=== PATIENT | male | born 1970 | race African-American/Black ===

== ENCOUNTER 2018-08-07 16:20 | Inpatient (IN) | payer OTHER ==
[2018-08-07 17:05] LABS: #Basophils 0.1 thou/uL (0.0-0.2); #Monocytes 0.7 thou/uL (0.11-0.59); #Neutrophils 4.9 thou/uL (1.40-6.50); %Basophils 0.8 % (0.0-1.0); %Eosinophils 0.4 % (0.0-10.0); %Lymphocytes 14.5 % (21.0-51.0); %Monocytes 10.1 % (0.0-10.0); %Neutrophils 74.1 % (42.0-75.0); Mean Corpuscular HGB CONC 33.2 g/dL (32.0-36.0); Mean Corpuscular Volume 90.4 fL (78.0-98.0); Mean Platelet Volume 9.5 fL (7.4-10.4); Platelet Count 178 thou/uL (130-400); RBC Distribution Width 12.3 % (11.5-14.5); Red Blood Cell (RBC) Count 4.34 mill/uL (4.70-6.10); White Blood Cell (WBC) Count 6.6 thou/uL (4.8-10.8)
[2018-08-07 17:26] LABS: Acetaminophen Less than 6.0 mcg/mL (10.0-30.0); Alcohol Less than 10 mg/dL (Less than 10); Salicylate Less than 8.0 mg/dL (15.0-30.0)
[2018-08-07 17:27] LABS: ALT (SGPT) 14 U/L (8-55); AST (SGOT) 24 U/L (5-34); Albumin 4.3 g/dL (3.5-5.0); Alkaline Phosphatase 59 U/L (40-150); Anion Gap 14 mmol/L (10-20); BUN (Urea Nitrogen) 19 mg/dL (8.9-20.6); Bilirubin, Total 0.7 mg/dL (0.2-1.2); Calc. Creatinine Clearance 0 mL/min (70-130); Calcium 9.1 mg/dL (7.8-10.44); Carbon Dioxide 26 mmol/L (22-29); Chloride 105 mmol/L (98-107); Estimated GFR-MDRD 66; Globulin 3.1 g/dL (2.4-3.5); Glucose 110 mg/dL (70-105); Potassium 3.7 mmol/L (3.5-5.1); Protein, Total 7.4 g/dL (6.0-8.3); Sodium 141 mmol/L (136-145)
--- NOTE | 2018-08-07 17:45 | CT ---
CT BRAIN NONCONTRAST: 08/07/18 HISTORY: 47-year-old male with altered mental status. FINDINGS: There is no midline shift or any other mass effect. There is no evidence of acute intracranial hemor rhage, large cortical infarct, obstructive hydrocephalus, or extraaxial fluid collection. The calvar ium is intact. IMPRESSION: No acute intracranial findings. jn [] POS: [facility]
--- NOTE | 2018-08-07 17:46 | RAD ---
RADIOGRAPH CHEST 1 VIEW: 08/07/18 HISTORY: 47-year-old male with altered mental status. FINDINGS: There is no air space density, pulmonary edema, or pneumothorax. The lateral costophrenic angles are sharp. IMPRESSION: No acute pulmonary findings. jn [] POS: [facility]
[2018-08-07 17:49] LABS: CKMB 3.8 ng/mL (0-6.6); Troponin I Less than 0.010 ng/mL (< 0.028)
[2018-08-07 19:05] LABS: Bilirubin Moderate (Negative); Blood, Urine Negative (Negative); Clarity CLEAR (Clear); Glucose, Urine (Dipstick) Negative (Negative); Leukocyte Small (Negative); Nitrite Negative (Negative); Protein, Urine (Dipstick) 30 mg/dL (Neg-Trace); Specific Gravity, Urine 1.034 (1.002-1.036); pH, Urine 5.5 (5.0-9.0)
[2018-08-07 19:08] LABS: Bacteria/HPF None Seen HPF (None Seen); Pathc Cast-AUWi Flag 1.45 (0-2.49); Squamous Epithelial 0-3 HPF (0-3)
[2018-08-07 19:14] LABS: Amphetamine Not Detected (NotDetected); Barbiturates Screen Not Detected (NotDetected); Benzodiazepine Screen Not Detected (NotDetected); Cocaine Metabolite Screen Not Detected (NotDetected); Medtox Control Line Valid? VALID (VALID); Medtox Reader # READER 1; Methadone Not Detected (NotDetected); Methamphetamine Not Detected (NotDetected); Opiate Screen Not Detected (NotDetected); Oxycodone Screen Not Detected (NotDetected); Phencyclidine (PCP) Not Detected (NotDetected); THC/Cannabinoid Screen Not Detected (NotDetected); Tricyclic Screen Not Detected (NotDetected)
[2018-08-07 19:19] LABS: Crystals/HPF 1+ AMORPH URATES HPF (Negative); Hyaline Casts/LPF 0-3 HYALINE CAST LPF (0-3 Hyaline); Renal Epithelial None Seen HPF (0-3); Transitional Epithelial NONE SEEN HPF (0-3)
[2018-08-07] MEDS ORDERED: Acetaminophen 325 MG TAB PO PRN (20:45)
[2018-08-07] MEDS ORDERED: Ondansetron HCl/PF 4 MG/2 ML Vial IVP PRN (20:45)
[2018-08-07] MEDS ORDERED: Ondansetron ODT 4 MG TAB PO PRN (20:45)
--- NOTE | 2018-08-07 20:56 | PDOC.FPRHP ---
- History of Present Illness Chief Complaint: AMS History of Present Illness: This is a 47 yo M here for AMS after being reported missing and found on the street by police officers. The patient was reported by EMS to have pinpoint pupils that were reactive. On exam in the ED, the patient is responsive, but only answers questions with "uh." He is unable to state his name, where he is, his , or how he got here. - Allergies/Adverse Reactions Allergies Allergy/AdvReac Type Severity Reaction Status Date / Time No Allergy Information Allergy Unverified 08/07/18 20:54 Available - History PMHx: unknown PSHx: unknown FHx: unknown Social: unknown - Review of Systems ROS unobtainable: due to mental status - Vital signs BP: 154/79 HR: 61 RR: 16 Tmax: 97.9 Pox: 98% on RA Wt: 104.33kg - Physical Exam HEENT: normocephalic and atraumatic, EOMI Chest: no-tender to palpation, no lesions Heart: RRR, normal S1/S2, no murmurs/rubs/gallops, pulses present, no edema Lungs: CTAB, no respiratory distress, good air movement, no wheezing Abdomen: soft, non-tender, bowel sounds present, no masses/distention -Musculoskeletal: limited ROM, hard to assess due to patient unable to cooperate fully -Neurological: Limited ROM, strength diminished, but hard to assess due to AMS -Psychiatric: AXOX 1 FMR H&P: Results - Labs Result Diagrams: 08/07/18 16:53 08/07/18 16:53 Lab results: WBC 6.6 thou/uL (4.8-10.8) 08/07/18 16:53 Hgb 13.0 g/dL (14.0-18.0) L 08/07/18 16:53 Hct 39.2 % (42.0-52.0) L 08/07/18 16:53 MCV 90.4 fL (78.0-98.0) 08/07/18 16:53 Plt Count 178 thou/uL (130-400) 08/07/18 16:53 Neutrophils % 74.1 % (42.0-75.0) 08/07/18 16:53 Sodium 141 mmol/L (136-145) 08/07/18 16:53 Potassium 3.7 mmol/L (3.5-5.1) 08/07/18 16:53 Chloride 105 mmol/L (98-107) 08/07/18 16:53 Carbon Dioxide 26 mmol/L (22-29) 08/07/18 16:53 BUN 19 mg/dL (8.9-20.6) 08/07/18 16:53 Creatinine 1.18 mg/dL (0.6-1.3) 08/07/18 16:53 Glucose 110 mg/dL (70-105) H 08/07/18 16:53 Calcium 9.1 mg/dL (7.8-10.44) 08/07/18 16:53 Total Bilirubin 0.7 mg/dL (0.2-1.2) 08/07/18 16:53 AST 24 U/L (5-34) 08/07/18 16:53 ALT 14 U/L (8-55) 08/07/18 16:53 Alkaline Phosphatase 59 U/L (40-150) 08/07/18 16:53 Ammonia 36 umol/L (18-72) 08/07/18 17:12 CK-MB (CK-2) 3.8 ng/mL (0-6.6) 08/07/18 16:47 Serum Total Protein 7.4 g/dL (6.0-8.3) 08/07/18 16:53 Albumin 4.3 g/dL (3.5-5.0) 08/07/18 16:53 Lipase 8 U/L (8-78) 08/07/18 16:47 Urine Ketones 40 mg/dL (Negative) H 08/07/18 18:40 Urine Blood Negative (Negative) 08/07/18 18:40 Urine Nitrite Negative (Negative) 08/07/18 18:40 Ur Leukocyte Esterase Small (Negative) H 08/07/18 18:40 Urine RBC 4-6 HPF (0-3) 08/07/18 18:40 Urine WBC 7-10 HPF (0-3) H 08/07/18 18:40 Ur Squamous Epith Cells 0-3 HPF (0-3) 08/07/18 18:40 Urine Bacteria None Seen HPF (None Seen) 08/07/18 18:40 FMR H&P: A/P - Problem List (1) Encephalopathy Current Visit: Yes Status: Acute Code(s): G93.40 - ENCEPHALOPATHY, UNSPECIFIED - Plan This is a 47yo M presenting for AMS after being found in the street by polic. Encephalopathy - AMS 2/2 to unknown cause - GCS 11 - CXR no acute cardiopulm process - CT head: nml - UDS: neg - UA: small leuk esterase, WBC 7-10, no nitrites - Patient places on fall and seizure precautions - Will get AM CBC, BMP - Will monitor patient overnight; consider MRI to look for any infarcts Case discussed with Dr. Castillo FMR H&P: Upper Level - Pertinent history 47 yo male here for AMS. History obtained from ER doc, EMS who said patient was found wandering the streets after being reported missing. No family available, Drivers license in the room with address of [place]. - Pertinent findings 147/81 HR: 64 Temp: 97.9 RR: 18 SO2: 97% on RA GEN: NAD, alert, non-verbal EYES: 3mm b/l, minimally reactive CARD: RRR, no m/g/r PULM: CTAB, limited due to patient non-compliance ABD: BSx4, soft NEURO: GCS: 11, patient sometimes follows commands such as squeezing hands, but does not assist with leaning forward to listen to lungs, does not answer questions, DTR 2+ in LE; eyes are spontaneously looking around room and out the ER glass door to his room, does not answer questions. UDS: neg Alcohol: <10 WBC: 6.6 H/H: 13/39.2 Plt: 178 Na: 141 K; 3.7 Eddie: 36 TSH: .67 Lipase: 8 Trop: <0.010 Glucose: 110 - Plan Date/Time: 08/07/182054 Ebenezer Dickinson DO, have evaluated this patient and agree with findings/plan as outlined by intern architect resident. Pertinent changes/additions are listed here. 1. encephalopathy, unknown source suspected toxic, recreational drug induced such as K2, which would not show up on a UDS. Will monitor overnight with supportive care and reevaluate in the AM. Patient noncombative. Fall precautions, seizure precautions. He is protecting his airway so ok to drink fluids. Consider MRI in the AM if not improving as there could be lacunar infarcts or other etiology. Will also try to get more information from family/friends or law enforcement in the AM. 2. normocytic anemia asymptomatic
[2018-08-07 23:28] VITALS: BMI 29.4
[2018-08-08 05:50] LABS: #Basophils 0.1 thou/uL (0.0-0.2); #Lymphocytes 1.4 thou/uL (1.20-3.40); #Monocytes 0.6 thou/uL (0.11-0.59); #Neutrophils 4.8 thou/uL (1.40-6.50); %Basophils 0.8 % (0.0-1.0); %Eosinophils 0.2 % (0.0-10.0); %Lymphocytes 19.9 % (21.0-51.0); %Monocytes 9.2 % (0.0-10.0); %Neutrophils 69.8 % (42.0-75.0); Hemoglobin 12.1 g/dL (14.0-18.0); Mean Corpuscular HGB CONC 32.8 g/dL (32.0-36.0); Mean Corpuscular Hemoglobin 29.7 pg (27.0-31.0); Mean Corpuscular Volume 90.6 fL (78.0-98.0); Mean Platelet Volume 9.1 fL (7.4-10.4); Platelet Count 173 thou/uL (130-400); RBC Distribution Width 12.4 % (11.5-14.5); Red Blood Cell (RBC) Count 4.06 mill/uL (4.70-6.10); White Blood Cell (WBC) Count 6.9 thou/uL (4.8-10.8)
[2018-08-08 06:11] LABS: Anion Gap 13 mmol/L (10-20); BUN (Urea Nitrogen) 16 mg/dL (8.9-20.6); Calc. Creatinine Clearance 154 mL/min (70-130); Calcium 8.7 mg/dL (7.8-10.44); Carbon Dioxide 25 mmol/L (22-29); Chloride 103 mmol/L (98-107); Estimated GFR-MDRD Greater than 90; Glucose 102 mg/dL (70-105); Potassium 3.4 mmol/L (3.5-5.1); Sodium 138 mmol/L (136-145)
--- NOTE | 2018-08-08 08:46 | PDOC.FM ---
- Subjective Subjective: 47 yo M who was found on the streets by PD. He was only ID'd due to having a DL in his wallet. Pt has not responded to commands since admission. This am, he is in no acute distress with eyes open, however will not respond to questions or commands. - Objective MAR Reviewed: Yes Vital Signs & Weight: Vital Signs (12 hours) Temp Pulse Resp BP Pulse Ox 08/08/18 07:55 97.3 F L 52 L 16 139/64 97 08/08/18 03:05 99.6 F 55 L 18 137/70 98 08/08/18 00:00 98.5 F 66 18 175/91 H Weight Weight 103.873 kg Result Diagrams: 08/08/18 05:34 08/08/18 05:34 <Daniel Martin - Last Filed: 08/08/18 08:44> - Objective Vital Signs & Weight: Vital Signs (12 hours) Temp Pulse Resp BP BP Pulse Ox 08/09/18 07:20 98.1 F 44 L 15 114/63 99 08/09/18 03:04 99.3 F 60 18 118/56 L 98 Weight Weight 103.873 kg Result Diagrams: 08/08/18 05:34 08/08/18 05:34 <Josafat Glasgow - Last Filed: 08/09/18 09:11> Phys Exam - Physical Examination Constitutional: NAD HEENT: PERRLA, moist MMs Neck: no nodes, no JVD Respiratory: clear to auscultation bilateral Cardiovascular: RRR 3/6 systolic murmur Gastrointestinal: soft, non-tender, no distention Musculoskeletal: no edema Pt moving all limbs, will not follow commands. Pupils sluggish Psychiatric: normal affect, A&O x 3 Skin: no rash, normal turgor <Daniel Martin - Last Filed: 08/08/18 08:44> Dx/Plan (2) Toxic encephalopathy Code(s): G92 - TOXIC ENCEPHALOPATHY Status: Acute - Plan Plan: Toxic encephalopathy - unclear etiology at this time. No apparent trauma and CT brain is negative. Tox screen negative, however this does not rule out some street drugs such as K2. No white count or other signs of infection. Electrolytes WNL. Unclear about psych hx due to no family available for questions. - Continue to monitor status on tele - Work to find family for more history. - Consider MHMR evaluation once all organic options have been ruled out Dispo: Continue to monitor on tele. No clear etiology at this time. LOS 24-48 hours <Daniel Martin - Last Filed: 08/08/18 08:44> Attending Addendum - Attending Addendum Date/Time: 08/09/18 0911 I personally evaluated the patient and discussed the management with Dr. Martin yesterday. I agree with the History, Examination, Assessment and Plan documented above with any addition or exceptions noted below. <Josafat Glasgow - Last Filed: 08/09/18 09:11>
--- NOTE | 2018-08-08 17:07 | EKG ---
Test Reason : AMS Blood Pressure : / mmHG Vent. Rate : 053 BPM Atrial Rate : 053 BPM P-R Int : 166 ms QRS Dur : 084 ms QT Int : 458 ms P-R-T Axes : 031 025 006 degrees QTc Int : 429 ms Sinus bradycardia Minimal voltage criteria for LVH, may be normal variant Borderline ECG Confirmed by DR. Jessica MARINELLI MD ([id number]) on 08/08/2018 5:06:59 PM Referred By: Confirmed By:DR. Jessica MARINELLI MD
[2018-08-08] MEDS: Benztropine 1 MG TAB PO SCH (20:47)
[2018-08-08] MEDS ORDERED: OLANZapine ODT 5 MG TAB SL SCH (21:00)
--- NOTE | 2018-08-09 08:19 | PDOC.FM ---
- Subjective Subjective: Pt seen at bedside this morning. He is interactive and pleasant. He denies all complaints. There were no acute events over night. - Objective MAR Reviewed: Yes Vital Signs & Weight: Vital Signs (12 hours) Temp Pulse Resp BP BP Pulse Ox 08/09/18 07:20 98.1 F 44 L 15 114/63 99 08/09/18 03:04 99.3 F 60 18 118/56 L 98 08/08/18 20:30 98.1 F 71 16 129/68 97 Weight Weight 103.873 kg Result Diagrams: 08/08/18 05:34 08/08/18 05:34 <Daniel Martin - Last Filed: 08/09/18 08:17> - Objective Vital Signs & Weight: Vital Signs (12 hours) Temp Pulse Resp BP BP Pulse Ox 08/09/18 08:10 99 08/09/18 07:20 98.1 F 44 L 15 114/63 99 08/09/18 03:04 99.3 F 60 18 118/56 L 98 Weight Weight 103.873 kg Result Diagrams: 08/08/18 05:34 08/08/18 05:34 <Josafat Glasgow - Last Filed: 08/09/18 13:27> Phys Exam - Physical Examination Constitutional: NAD HEENT: PERRLA, moist MMs Neck: no nodes, no JVD Respiratory: clear to auscultation bilateral Cardiovascular: RRR 2/6 systolic murmur Gastrointestinal: soft, non-tender, no distention Musculoskeletal: no edema, pulses present Neurological: non-focal, normal sensation, moves all 4 limbs Psychiatric: normal affect, A&O x 3 Skin: no rash, normal turgor <Daniel Martin - Last Filed: 08/09/18 08:17> Dx/Plan (1) Bipolar disorder Code(s): F31.9 - BIPOLAR DISORDER, UNSPECIFIED Status: Chronic Qualifiers: Active/Remission status: currently active Current episode severity: moderate (2) Toxic encephalopathy Code(s): G92 - TOXIC ENCEPHALOPATHY Status: Ruled-out - Plan Plan: 1. Bipolar disorder - after discussion with mother yesterday, pt has long standing bipolar disorder and will become catatonic when off of his meds. He was restarted on his medication yesterday and is doing much better this morning. He is A&O x3. He denies hallucinations, SI, HI. - Pt ready for discharge today. Dispo: Pt doing well and back to functional baseline. He is ready to discharge <Daniel Martin - Last Filed: 08/09/18 08:17> Attending Addendum - Attending Addendum Date/Time: 08/09/18 9785 I personally evaluated the patient and discussed the management with Dr. Martin. I agree with the History, Examination, Assessment and Plan documented above with any addition or exceptions noted below. <Josafat Glasgow - Last Filed: 08/09/18 13:27>
[2018-08-09] MEDS: Benztropine 1 MG TAB PO SCH (08:27)
[2018-08-09] MEDS ORDERED: Escitalopram Oxalate 10 mg Tablet PO SCH (09:00)
[2018-08-09 15:41] VITALS: BP 130/72; TEMP 97.9
--- NOTE | 2018-08-10 09:58 | DIS-2 ---
DATE OF ADMISSION: 08/07/2018 DATE OF DISCHARGE: 08/09/2018 DISCHARGE ATTENDING: Alfonso Castillo M.D. DISCHARGE ATTENDING: Josafat Glasgow M.D. RESIDENT: Daniel Martin DO CONSULTATIONS: None. PROCEDURES: CT brain on 08/07/2018 with findings of no acute intracranial findings and a chest x-ray on 08/07/2018, finding no acute pulmonary findings. ADMISSION DIAGNOSIS: Encephalopathy. DISCHARGE DIAGNOSIS: Bipolar disorder. DISCHARGE MEDICATIONS: Olanzapine ODT 10 mg sublingual at bedtime, escitalopram 10 mg p.o. daily, di valproex 250 mg p.o. b.i.d. and 500 mg p.o. b.i.d., Cogentin 1 mg p.o. b.i.d. HOSPITAL COURSE: This is a 47-year-old male who was initially found by police, wandering in the stre ets and was only able to be identified by name on the wall. At that time, it was determined that he was person of which a missing person report had been previously filed by friends at that time. At th e time of admission, we were unable to contact any friends or family. When the patient was awake, pritesh luo, would not respond to questioning or commands. Workup for organic causes were negative. There were no significant lab abnormalities, tox screen abnormalities, or imaging abnormalities. Initiall y, there was a concern for a toxic encephalopathy versus a psychiatric etiology to patient's nonverba l state. The following morning, an ethic's consult was placed and to help determine decision making and find family. After discussion with the patient's mother, it was determined that the patient has known bipolar disorder and had been off his medications in the past, whenever he off his meds, he goe s into this catatonic state similar to what was described to her by physician at that time. Mother p rovided his home some medication regimen. This was immediately restarted. In the morning, the day of hospitalization, the patient was alert, oriented, appropriately interactive, and back to wha t appears to be his functional baseline. The patient's family was called to inform his return to [facility] status, it is determined that the patient was safe to return home in the care of his family. A t the time of discharge, the patient had no hallucinations, no suicidal ideation, no homicidal ideati on. There are no signs or symptoms of aba. He did not appear to be danger to self or others aroun d him. Per family, he was at his functional baseline. DISCHARGE INSTRUCTIONS: 1. Location: Home with family 2, Diet: Regular diet. 3. Activity: Ad raj. 4. Followup: With PCP within 1 week.
== END 2018-08-09 16:42 | disposition home or self-care (01) | DRG 885 ==
LOC: ERS 16:20 → 2NO 20:20
PROVIDERS: ADMIT Family Medicine; ATTEND Family Medicine
DX: F31.9 Bipolar disorder, unspecified (principal); Z91.14 Patient's other noncompliance with medication regimen
CPT/HCPCS: 36415; 36416; 51701; 70450; 71045; 80048; 80053; 80306; 80307; 81003; 81015; 82140; 82553; 83690; 84443; 84484; 85025; 93005; 96360